=== PATIENT | female | born 1970 | race African-American/Black ===

== ENCOUNTER 2025-01-13 08:44 | Emergency (ER) | payer OTHER, MEDICAID ==
[2025-01-13] MEDS ORDERED: Dexamethasone 10 MG/ML VIAL ONE (09:15)
== END 2025-01-13 10:35 | disposition home or self-care (01) ==
LOC: CSHERS 08:44
DX: J45.901 Unspecified asthma with (acute) exacerbation (principal); I25.2 Old myocardial infarction; I10 Essential (primary) hypertension; E11.9 Type 2 diabetes mellitus without complications; Z95.0 Presence of cardiac pacemaker
CPT/HCPCS: 71045; 94640; J1100; J7620